=== PATIENT | female | born 1955 | race Caucasian/White ===

== ENCOUNTER → 2020-12-03 | Outpatient (CLI) | payer SELFPAY ==
[2020-12-03 13:55] LABS: BASOPHILS ABSOLUTE AUTO 0.03 K/mm3 (0.00-0.23); BASOPHILS PERCENT AUTO 1 % (0-2); EOSINOPHILS ABSOLUTE AUTO 0.17 K/mm3 (0.00-0.68); EOSINOPHILS PERCENT AUTO 4 % (0-6); Hematocrit 42.1 % (33.0-51.0); Hemoglobin 13.7 g/dL (11.5-16.0); IMMATURE GRAN ABSOLUTE AUTO 0.01 K/mm3 (0.00-0.10); IMMATURE GRAN PERCENT AUTO 0 % (0-1); LYMPHOCYTES ABSOLUTE AUTO 1.23 K/mm3 (0.84-5.20); LYMPHOCYTES PERCENT AUTO 27 % (21-46); MONOCYTES ABSOLUTE AUTO 0.37 K/mm3 (0.16-1.47); MONOCYTES PERCENT AUTO 8 % (4-13); Mean Corpuscular HGB 29.4 pg (26.0-34.0); Mean Corpuscular HGB Conc 32.5 g/dL (31.5-36.5); Mean Corpuscular Volume 90 fL (80-100); Mean Platelet Volume 10.4 fL (9.1-12.4); NEUTROPHILS ABSOLUTE AUTO 2.72 K/mm3 (1.96-9.15); NEUTROPHILS PERCENT AUTO 60 % (41-73); Platelet Count 244 K/mm3 (150-400); RDW Coefficient Variation 13.3 % (11.7-14.2); RDW Standard Deviation 44.5 fL (35.1-46.3); Red Blood Cell Count 4.66 M/mm3 (3.80-5.20); White Blood Cell Count 4.53 K/mm3 (4.00-11.30)
[2020-12-03 14:11] LABS: Alanine Aminotransfer (ALT/SGP 21 U/L (12-78); Albumin, Blood 3.9 g/dL (3.4-5.0); Alk Phos 82 U/L (50-136); Anion Gap 3 mmol/L (6-16); Aspartate Aminotrans (AST/SGOT 15 U/L (12-37); Bilirubin, Total 1.2 mg/dL (0.1-1.0); Blood Urea Nitrogen 22 mg/dL (8-24); Bun/Creatinine Ratio 23.2 (12.0-20.0); CHOL/HDL RATIO 3.1; CO2, Blood 28 mmol/L (21-32); Calcium, Blood 9.1 mg/dL (8.5-10.1); Chloride, Blood 108 mmol/L (98-108); Cholesterol 250 mg/dL (50-200); Creatinine, Blood 0.95 mg/dL (0.40-1.00); Globulin, Blood 3.8 g/dL (2.2-4.0); Glomerular Filtration Rate 59 (60-); Glucose, Blood 106 mg/dL (70-99); HDL Cholesterol 80 mg/dL (>39); LDL/HDL RATIO 1.9; Low Density Lipoprotein Chol 151 mg/dL (0-110); Potassium, Blood 4.3 mmol/L (3.5-5.5); Sodium, Blood 139 mmol/L (136-145); Total Protein, Blood 7.7 g/dL (6.4-8.2); Triglycerides 97 mg/dL (30-160); Very Low Density Lipoprot Chol 19 mg/dL (6-32)
== END | disposition home or self-care (01) ==
LOC: LAB SHORT 12:47
PROVIDERS: Family Medicine
DX: Z51.81 Encounter for therapeutic drug level monitoring (principal); Z79.899 Other long term (current) drug therapy
CPT/HCPCS: 80053; 80061; 85025

== ENCOUNTER 2022-08-23 11:24 | Emergency (ER) | payer MEDICARE ==
[~2022-08-23] VITALS: Ht 160 cm; Wt 97.5 kg
[2022-08-23 11:37] VITALS: BP 169/99
[2022-08-23] MEDS ORDERED: TIMO10T (13:41)
[2022-08-23] MEDS ORDERED: LUMIGAN2.5 ML LEFTEYE (13:41)
[2022-08-23] MEDS ORDERED: TEMOVATE15 G1 TOP (13:42)
[2022-08-23] MEDS ORDERED: Ultram50 MG PO (15:54)
== END 2022-08-23 16:06 | disposition home or self-care (01) ==
LOC: ER 11:24
DX: S52.571A Other intraarticular fracture of lower end of right radius, initial encounter for closed fracture (principal); W18.30XA Fall on same level, unspecified, initial encounter
CPT/HCPCS: 29125; 70480; 73110; 99284-25; A9270

== ENCOUNTER 2022-08-30 12:44 | Day surgery (SDC) | payer MEDICARE ==
[~2022-08-30] VITALS: Ht 160 cm; Wt 97.5 kg
[2022-08-30] VITALS (13 sets, daily range): BP systolic 120–151; BP diastolic 62–100
[~2022-08-30 12:44] MED LIST: LUMIGAN2.5 ML LEFTEYE; TEMOVATE15 G1 TOP; TIMO10T; Ultram50 MG PO
[2022-08-30] MEDS ORDERED: IBUP600 PO (13:22)
[2022-08-30] MEDS ORDERED: MELO7.5 PO (13:22)
--- NOTE | 2022-08-30 14:11 | NUR ---
PRE-OP NOTE PT A&OX4, BREATHING RA, NO COMPLAINTS, AT BEDSIDE. PT R ARM WRAPPED IN GAYATRI BANDAGE, BRUISING AND SOME SWELLING NOTED ON FINGERS, CAP REFILL BRISK, FINGERS ARE PINK WARM AND DRY. LARGE BRUISE NOTED TO R CHEEK AND LOWER EYE. Ambulatory in Day Surgery Patient confirms NPO status and agrees with scheduled surgery. Pre-Op teaching done. Pt verbalizes understanding. Patient States Post-Procedure ride home has been arranged.
--- NOTE | 2022-08-30 16:28 | NUR ---
08/30/22 1628 KHANG HASSAN PT RECEIVED NERVE BLOCK PRIOR TO OR START TIME. PROCEDURE PERFORMED BY DR. OH.
--- NOTE | 2022-08-30 18:19 | NUR ---
PT AND VERBALIZE UNDERSTANDING OF D/C INSTRUCTIONS. AFEBRILE/VSS. TOLERATED CRACKERS & JUICE. IV D/C w/CATH INTACT. SOFT SPLING w/GAYATRI WRAP INTACT. FINGERS PINK/WARM w/+2 CAP REFILL. ABLE TO WIGGLE FINGERS ON COMMAND. ARM SLING IN PLACE. APPEARS COMFORTABLE & RELAXED. NO ACUTE CHANGES AT TIME OF D/C HOME w/.
== END 2022-08-30 22:58 | disposition home or self-care (01) ==
LOC: ORSCMMR 12:44
PROVIDERS: Orthopaedic Surgery
PROC: 0PSH04Z Reposition Right Radius with Internal Fixation Device, Open Approach (ICD-10-PCS; principal; 2022-08-30 15:15)
DX: S52.571A Other intraarticular fracture of lower end of right radius, initial encounter for closed fracture (principal); K21.9 Gastro-esophageal reflux disease without esophagitis; Z79.899 Other long term (current) drug therapy; E66.9 Obesity, unspecified; Z68.38 Body mass index [BMI] 38.0-38.9, adult
CPT/HCPCS: 36415; 80048; 85025; A9270; C1713; J0690; J1100; J1885; J2250; J2405; J2704; J2795; J3010; J7120